=== PATIENT | female | born 1990 | race African-American/Black ===

== ENCOUNTER 2023-01-23 08:48 | Emergency (ER) | payer BC ==
[~2023-01-23] VITALS: Ht 170.2 cm; Wt 72.6 kg
[2023-01-23] MEDS ORDERED: HUMALOG100 UNIT/2 SQ (09:06)
[2023-01-23] MEDS ORDERED: DICLOFENAC POTA50 MG PO (11:09)
[2023-01-23] MEDS ORDERED: CLINDAMYCIN HC300 MG PO (11:09)
[2023-01-23] MEDS ORDERED: INTESTINEX680 M1 PO (11:09)
== END 2023-01-23 11:16 ==
LOC: ER 08:48
DX: S60.474A Other superficial bite of right ring finger, initial encounter (principal); W54.0XXA Bitten by dog, initial encounter; Y93.89 Activity, other specified; Y92.89 Other specified places as the place of occurrence of the external cause; Y99.9 Unspecified external cause status; L03.011 Cellulitis of right finger; E11.9 Type 2 diabetes mellitus without complications; Z79.4 Long term (current) use of insulin; Z88.0 Allergy status to penicillin; Z91.041 Radiographic dye allergy status